=== PATIENT | female | born 1935 | race Caucasian/White ===

== ENCOUNTER 2016-11-15 18:10 | Inpatient (IN) | payer OTHER, MEDICARE ==
[2016-11-15] MEDS ORDERED: NS 1,000 ML IV ONE (18:20)
--- NOTE | 2016-11-15 18:32 | EDPHY ---
H & P Stated Complaint: FLU + sent from Time Seen by Provider: 11/15/16 18:19 HPI/ROS: CHIEF COMPLAINT: Fever, cough, congestion HISTORY OF PRESENT ILLNESS: The patient is referred to the emergency department from urgent care. She presents to the ED with a history of fever, cough and dyspnea that began on Wednesday. The patient has a history of reactive airway disease. The patient also has a history of coronary artery disease. She was diagnosed with influenza A at the urgent care. The patient is not had her flu shot this year. The patient denies any recent travel outside the [place]. She denies recent hospitalization or antibiotic use. The patient reports moderate dyspnea. She denies additional complaints. REVIEW OF SYSTEMS: A comprehensive 10 point review of systems is otherwise negative aside from elements mentioned in the history of present illness. Source: Patient - Personal History Current Tetanus/Diphtheria Vaccine: Yes Current Tetanus Diphtheria and Acellular Pertussis (TDAP): Yes Tetanus Vaccine Date: < 10 years - Medical/Surgical History Hx Asthma: Yes Hx Chronic Respiratory Disease: Yes Hx Diabetes: No Hx Cardiac Disease: Yes Hx Renal Disease: No Hx Cirrhosis: No Hx Alcoholism: No Hx HIV/AIDS: No Hx Splenectomy or Spleen Trauma: No Other PMH: [place], knee surg x2, HTN, COPD, asthma - Social History Smoking Status: Former smoker - Physical Exam Exam: General Appearance: Alert, no distress Eyes: Pupils equal and round no pallor or injection ENT, Mouth: Mucous membranes moist Respiratory: Tachypnea, respiratory rate 22, scant expiratory wheezing noted Cardiovascular: Regular rate and rhythm Gastrointestinal: Abdomen is soft and nontender, no masses, bowel sounds normal Neurological: A&O, normal motor function, normal sensory exam, normal cranial nerves Skin: Warm and dry, no rashes Musculoskeletal: Neck is supple nontender Extremities: symmetrical, full range of motion Constitutional: Initial Vital Signs Temperature (C) 37.5 C 11/15/16 18:14 Heart Rate 96 11/15/16 18:14 Respiratory Rate 18 11/15/16 18:14 Blood Pressure 108/75 11/15/16 18:14 O2 Sat (%) 97 11/15/16 18:14 O2 Delivery Mode Room Air Allergies/Adverse Reactions: No Known Allergies Allergy (Verified 11/15/16 18:12) Home Medications: Medication Instructions Recorded Aspirin [Aspirin 81mg (*)] 81 mg PO DAILY 11/17/13 Atorvastatin Calcium [Lipitor 10 10 mg PO DAILY 11/17/13 mg (*)] Calcium Carbonate/Vitamin D3 1 each PO BID 11/17/13 [Os-Adalberto 500-Vit D3 200 Caplet] Glucosamine/Chondro Garcia A [Cosamin 1 each PO BID 11/17/13 Ds Tablet] Herbals/Supplements -Info Only 1 ea PO DAILY 11/17/13 Hydrochlorothiazide [HCTZ (*)] 25 mg PO DAILY 11/17/13 amLODIPine BESYLATE [Norvasc 5 mg 5 mg PO DAILY 11/17/13 (*)] Omeprazole [Prilosec 20 mg] 20 mg PO DAILY 12/04/13 Losartan Potassium [Cozaar 25 mg 25 mg PO DAILY 11/15/16 (*)] Proair Hfa 11/15/16 Medical Decision Making ED Course/Re-evaluation: The patient's room-air oxygen saturation was 82% on my check. She was placed on supplemental oxygen at 2 liters/minute which elevated her oxygen saturation to 94% on room air. I reviewed the patient's chest x-ray obtained prior to arrival demonstrates no evidence of a focal infiltrate or effusion. The patient had an IV established. She received a L of normal saline. The patient presents to the ED with acute influenza with acute hypoxemia. The patient will require admission to the hospital in the setting of her oxygen requirement. Consultation is made with Dr. Bella from the hospitalist service who will admit the patient. The patient did receive Tamiflu in the emergency department. Differential Diagnosis: Differential diagnosis considered includes influenza, pneumonia, metabolic abnormality, hypoxemia, respiratory failure, sepsis - Data Points Laboratory Results: Laboratory Results 11/15/16 18:40 11/15/16 18:40 11/15/16 11/15/16 11/15/16 18:40 18:40 18:40 WBC 6.91 10^3/uL 10^3/uL (3.80-9.50) RBC 3.99 10^6/uL L 10^6/uL (4.18-5.33) Hgb 11.6 g/dL L g/dL (12.6-16.3) Hct 35.7 % L % (38.0-47.0) MCV 89.5 fL fL (81.5-99.8) MCH 29.1 pg pg (27.9-34.1) MCHC 32.5 g/dL g/dL (32.4-36.7) RDW 13.7 % % (11.5-15.2) Plt Count 172 10^3/uL 10^3/uL (150-400) MPV 11.8 fL H fL (8.7-11.7) Neut % (Auto) 77.1 % H % (39.3-74.2) Lymph % (Auto) 6.7 % L % (15.0-45.0) [place] % (Auto) 14.9 % H % (4.5-13.0) Eos % (Auto) 0.6 % % (0.6-7.6) Baso % (Auto) 0.1 % L % (0.3-1.7) Nucleat RBC Rel Count 0.0 % % (0.0-0.2) Absolute Neuts (auto) 5.33 10^3/uL 10^3/uL (1.70-6.50) Absolute Lymphs (auto) 0.46 10^3/uL L 10^3/uL (1.00-3.00) Absolute Monos (auto) 1.03 10^3/uL H 10^3/uL (0.30-0.80) Absolute Eos (auto) 0.04 10^3/uL 10^3/uL (0.03-0.40) Absolute Basos (auto) 0.01 10^3/uL L 10^3/uL (0.02-0.10) Absolute Nucleated RBC 0.00 10^3/uL 10^3/uL (0-0.01) Immature Gran % 0.6 % % (0.0-1.1) Immature Gran # 0.04 10^3/uL 10^3/uL (0.00-0.10) VBG Lactic Acid 1.6 mmol/L mmol/L (0.7-2.1) Sodium 132 mEq/L L mEq/L (134-144) Potassium 3.3 mEq/L L mEq/L (3.5-5.2) Chloride 97 mEq/L mEq/L (97-110) Carbon Dioxide 24 mEq/l mEq/l (22-31) Anion Gap 11 mEq/L mEq/L (8-16) BUN 18 mg/dL mg/dL (7-23) Creatinine 0.9 mg/dL mg/dL (0.6-1.0) Estimated GFR > 60 Glucose 107 mg/dL H mg/dL (70-100) Calcium 8.4 mg/dL L mg/dL (8.5-10.4) Medications Given: Discontinued Medications Sodium Chloride (Ns) 1,000 mls @ 0 mls/hr IV EDNOW ONE; Wide Open PRN Reason: Protocol Stop: 11/15/16 18:21 Last Admin: 11/15/16 18:42 Dose: 1,000 mls Departure - Departure Referrals: Marshall Davenport MD [Primary Care Provider] - As per Instructions
[2016-11-15 18:50] LABS: % IMMATURE GRANULYOCYTES 0.6 % (0.0-1.1); ABSOLUTE IMMATURE GRANULOCYTES 0.04 10^3/uL (0.00-0.10); ADD DIFF? NO; ADD MORPH? NO; ADD SCAN? NO; ATYPICAL LYMPHOCYTE FLAG 0 (0-99); FRAGMENT RBC FLAG 0 (0-99); HEMATOCRIT 35.7 % (38.0-47.0); HEMOGLOBIN 11.6 g/dL (12.6-16.3); LEFT SHIFT FLG 0 (0-99); LIPEMIA HEMOLYSIS FLAG 80 (0-99); MEAN CELL HEMOGLOBIN 29.1 pg (27.9-34.1); MEAN CELL HEMOGLOBIN CONCENTR. 32.5 g/dL (32.4-36.7); MEAN CELL VOLUME 89.5 fL (81.5-99.8); MEAN PLATELET VOLUME 11.8 fL (8.7-11.7); PLATELET CLUMPS FLAG 40 (0-99); PLATELET COUNT 172 10^3/uL (150-400); RED BLOOD CELL COUNT 3.99 10^6/uL (4.18-5.33); RED CELL DISTRIBUTION WIDTH 13.7 % (11.5-15.2)
[2016-11-15 19:08] LABS: ANION GAP 11 mEq/L (8-16); CALCIUM 8.4 mg/dL (8.5-10.4); CARBON DIOXIDE 24 mEq/l (22-31); CHLORIDE 97 mEq/L (97-110); CREATININE 0.9 mg/dL (0.6-1.0); GLOMERULAR FILTRATION RATE > 60; GLUCOSE 107 mg/dL (70-100); POTASSIUM 3.3 mEq/L (3.5-5.2); SODIUM 132 mEq/L (134-144)
[2016-11-15] MEDS ORDERED: OSELTAMIVIR PHOSPHATE 75 MG CAP PO ONE (19:34)
[2016-11-15] MEDS ORDERED: ONDANSETRON DISINTEGRATING 4 MG TAB PO PRN (20:30)
[2016-11-15] MEDS ORDERED: ACETAMINOPHEN 325 MG TAB PO PRN (20:30)
[2016-11-15] MEDS ORDERED: NS W/ 20 KCl/L 1,000 ML IV SCH (20:30)
[2016-11-15] MEDS ORDERED: ONDANSETRON 4 MG/2 ML VIAL IVP PRN (20:30)
--- NOTE | 2016-11-15 21:03 | GHP ---
[f rep st] HISTORY AND PHYSICAL DATE OF ADMISSION: 11/15/2016 CHIEF COMPLAINT: Cough and fever. HISTORY OF PRESENT ILLNESS: This is a 81-year-old female, who presents with 3 days of nonproductive cough. She has had some shortness of breath. She has also had nausea, vomiting, fevers, chills an d fatigue. No diarrhea. REVIEW OF SYSTEMS: A 10-point review of systems was obtained and was negative. PAST MEDICAL HISTORY: 1. Hypertension. 2. Hyperlipidemia. 3. COPD, not on home oxygen. MEDICATIONS: Reviewed. SOCIAL HISTORY: Quit smoking 55 years ago. Lives with her . FAMILY HISTORY: Reviewed and noncontributory. PHYSICAL EXAMINATION: VITAL SIGNS: Afebrile, although in the urgent care it was over 38 degrees Ce lsius, blood pressure 98/81, heart rate 29, oxygen saturation 94% on 2 L. GENERAL: The patient is well developed, no apparent distress. HEENT: Nonicteric sclerae. Extraocular movements intact. M oist mucous membranes. NECK: Supple. No thyromegaly. LUNGS: Good effort. Fairly clear bilatera lly. CARDIOVASCULAR: Regular rate and rhythm. No murmurs, rubs, or gallops. ABDOMEN: Positive b owel sounds. Soft, nontender, nondistended. No hepatosplenomegaly. EXTREMITIES: No clubbing, cya nosis, or edema. SKIN: Without rash. Warm, intact. NEUROLOGIC: Alert and oriented x3. Moving a ll 4 extremities equally. PSYCHIATRIC: Normal mood and affect. LABORATORY DATA: CBC is essentially normal, though mild anemia. Lactic acid is normal. Potassium is a little bit low at 3.3, sodium is 132. Flu was reported positive at urgent care. Chest x-ray, personally reviewed and interpreted, does not show pneumonia. ASSESSMENT: This is a 81-year-old female presenting with influenza. PLAN: 1. Influenza. We will continue Tamiflu. Give IV fluids. Antiemetics as needed. 2. History of chronic obstructive pulmonary disease with reactive airways. Per ER, she was quite w heezy when she came in. We will schedule nebulizer treatments. Hold off on any steroids. 3. Hypertension. We will continue medications. Hold the diuretic for now. /[id number]/MODL
[2016-11-15] MEDS: IPRATROPIUM/ALBUTEROL 3 ML DEYVIAL IH SCH (21:18)
[2016-11-16] MEDS: IPRATROPIUM/ALBUTEROL 3 ML DEYVIAL IH SCH ×4 (05:28→20:49)
[2016-11-16] MEDS: OSELTAMIVIR PHOSPHATE 75 MG CAP PO SCH ×2 (08:58→17:50)
[2016-11-16] MEDS ORDERED: FAMOTIDINE 20 MG TAB PO PRN (09:39)
[2016-11-16] MEDS ORDERED: diphenhydrAMINE 25 MG CAP PO PRN (09:39)
[2016-11-16] MEDS ORDERED: VITAMIN D3 PO SCH (09:45)
[2016-11-16] MEDS ORDERED: [UNRECOGNIZED DRUG - OTHER] PO SCH (09:45)
[2016-11-16] MEDS ORDERED: CALCIUM CARBONATE PO SCH (09:45)
[2016-11-16] MEDS ORDERED: Herbals/Supplements -Info Only PO SCH (10:00)
[2016-11-16] MEDS: CALCIUM CARB W/VIT D 500 MG TAB PO SCH ×2 (10:46→21:10)
[2016-11-16] MEDS: ASPIRIN 81 MG CHEWABLE TAB PO SCH (10:46)
[2016-11-16] MEDS: predniSONE 20 MG TAB PO SCH (10:46)
--- NOTE | 2016-11-16 14:52 | HOSPPROG ---
Hospitalist Progress Note Assessment/Plan: Assessment: 81-year-old female presents with acute hypoxic respiratory failure in the setting of acute COPD exacerbation influenza Plan: 1. Acute hypoxic respiratory failure. Evidenced by SpO2 of 78% on room air with tachypnea, labored breathing, symptomatic shortness of breath, secondary to acute COPD exacerbation -requiring up titration to 4 L nasal cannula today in order to accomplish stabilization -treat COPD exacerbation more aggressively, then continue to wean 2. Acute COPD exacerbation. Evidenced by diffuse expiratory wheezes and bronchial breath sounds, has known COPD but is not on any long-acting inhalers -worsening today, introduce prednisone for 5 day burst, continue scheduled duo nebs -chest x-ray demonstrating no focal airspace disease, flattening of the diaphragms consistent with COPD -counseled patient extensively regarding possible need for short-term oxygen, introduction of steroids and gauging of affect over the next 24-48 hours 3. Influenza. Acute infection, resulting in fever, provoking COPD exacerbation , patient remains asymptomatic and is feeling lethargic -engage with physical therapy -supportive care -continue Tamiflu, day 2 of 5 4. Hyponatremia. Acute, secondary to poor oral intake in the setting of above, give normal saline and repeat serum sodium level in a.m. Diet. Regular Prophylaxis. High risk patient, Lovenox 40 Code. Full Disposition. Upgraded to inpatient admission status, given that anticipated length stay is greater than 48 hours for reasonable medical necessity including worsening COPD exacerbation, worsening respiratory failure, in the setting of influenza. Subjective: Patient remains symptomatically short of breath with activity Objective: Vital Signs Temp Pulse Resp BP Pulse Ox 36.8 C 98 16 141/46 H 87 L 11/16/16 11:33 11/16/16 11:33 11/16/16 11:33 11/16/16 11:33 11/16/16 11:45 11/15/16 11/16/16 11/17/16 05:59 05:59 05:59 Intake Total 1120 Balance 1120 - Time Spent With Patient Time Spent with Patient: greater than 35 minutes Time Spent with Patient: Greater than 35 minutes spent on this patients care, greater than 50% of time spent counseling, educating, and coordinating care regarding the above mentioned plan. - Physical Exam Constitutional: not in pain, uncomfortable Cardiovascular: regular rate and rhythym, no murmur, rub, or gallop Respiratory: reduced air movement (On expiration bilaterally), expiratory wheeze , bronchial breath sounds, No inspiratory crackles Gastrointestinal: normoactive bowel sounds, soft, non-tender abdomen, no palpable masses Neurologic: AAOx3, sensation intact bilaterally Psychiatric: interacting appropriately, not anxious, not encephalopathic, thought process linear ICD10 Worksheet Patient Problems: Problems Problem Status Onset Primary localized osteoarthrosis, lower leg Chronic
--- NOTE | 2016-11-16 15:42 | ASMTCMCOM ---
CM Note CM Note Notes: Pt here w/increased O2 needs and flu, dc needs unclear, PT to eval. RENEE w/f. Date Signed: 11/16/2016 03:41 PM Electronically Signed By:Renita Granger
[2016-11-16] MEDS ORDERED: MELATONIN 3 MG TAB PO SCH (21:00)
[2016-11-16] MEDS ORDERED: IBUPROFEN 200 MG TAB PO SCH (21:00)
[2016-11-17 05:15] LABS: % IMMATURE GRANULYOCYTES 0.6 % (0.0-1.1); ABSOLUTE IMMATURE GRANULOCYTES 0.03 10^3/uL (0.00-0.10); ADD DIFF? NO; ADD MORPH? NO; ADD SCAN? NO; ATYPICAL LYMPHOCYTE FLAG 0 (0-99); FRAGMENT RBC FLAG 0 (0-99); HEMOGLOBIN 11.1 g/dL (12.6-16.3); LEFT SHIFT FLG 10 (0-99); LIPEMIA HEMOLYSIS FLAG 80 (0-99); MEAN CELL HEMOGLOBIN 29.2 pg (27.9-34.1); MEAN CELL HEMOGLOBIN CONCENTR. 32.6 g/dL (32.4-36.7); MEAN CELL VOLUME 89.5 fL (81.5-99.8); PLATELET CLUMPS FLAG 10 (0-99); PLATELET COUNT 130 10^3/uL (150-400); RED CELL DISTRIBUTION WIDTH 13.7 % (11.5-15.2)
[2016-11-17 05:35] LABS: ALANINE AMINOTRANSFERASE 36 IU/L (9-52); ALKALINE PHOSPHATASE 56 IU/L (38-126); ASPARTATE AMINOTRANSFERASE 49 IU/L (14-46); BILIRUBIN,TOTAL 0.4 mg/dL (0.1-1.4); CALCIUM 8.6 mg/dL (8.5-10.4); CARBON DIOXIDE 27 mEq/l (22-31); CHLORIDE 101 mEq/L (97-110); CREATININE 0.8 mg/dL (0.6-1.0); GLOMERULAR FILTRATION RATE > 60; GLUCOSE 104 mg/dL (70-100); SODIUM 135 mEq/L (134-144); TOTAL PROTEIN 5.6 g/dL (6.3-8.2)
[2016-11-17] MEDS: IPRATROPIUM/ALBUTEROL 3 ML DEYVIAL IH SCH ×2 (05:44→10:25)
[2016-11-17 07:08] LABS: ANION GAP 7 mEq/L (8-16); POTASSIUM 4.3 mEq/L (3.5-5.2)
[2016-11-17] MEDS: ASPIRIN 81 MG CHEWABLE TAB PO SCH (08:12)
[2016-11-17] MEDS: OSELTAMIVIR PHOSPHATE 75 MG CAP PO SCH (08:12)
[2016-11-17] MEDS: CALCIUM CARB W/VIT D 500 MG TAB PO SCH (08:12)
[2016-11-17] MEDS: predniSONE 20 MG TAB PO SCH (08:12)
[2016-11-17 11:34] VITALS: BP 126/61; PULSE 85; RESP 16; TEMP 99.2; O2SAT 92
--- NOTE | 2016-11-17 13:06 | PDHOMEO2F ---
Home Oxygen Face to Face Home Orders: I certify that a physician or a nurse practitioner or physician's assistant site manager has had a fgsd-to-fefz encounter with this patient on the date of this order due to the diagnosis listed, which relates to the primary reason the patient requires home oxygen. Alternative treatments have been tried, or considered, and deemed ineffective. It is anticipated that supplemental oxygen will result in improvement with treatment. Home oxygen qualifying diagnosis: COPD Home oxygen secondary diagnosis: Influenza A Infection SpO2 on room air (%): 86 Frequency of home oxygen needed: continuous Home oxygen liters per minute: 2 Home oxygen delivery device: nasal cannula Concentrator: Yes E-tanks for mobility and back up: Yes If ordering portable O2, is the patient mobile in the home?: Yes I certify that, based on these findings, the home oxygen is medically necessary for this patient for the following length of time. Length of time home oxygen needed: 1 month
--- NOTE | 2016-11-17 13:15 | PDDCSUM ---
Discharge Summary Discharge Summary: DISCHARGE SUMMARY FOLLOW-UP ITEMS: Reassess oxygen needs in the outpatient setting DATE OF ADMISSION: 11/15/16 DATE OF DISCHARGE: 11/17/2016 DISCHARGE DIAGNOSES: 1. Acute hypoxic respiratory failure 2. Acute COPD exacerbation 3. Acute influenza infection 4. Acute hyponatremia CONSULTATIONS: None PROCEDURES / IMAGING: Chest x-ray demonstrating no focal airspace disease, flattening of the diaphragms consistent with COPD CHIEF COMPLAINT: Acute shortness of breath SUBJECTIVE: Patient is feeling well at time of discharge, she is ambulating well with supplemental oxygen PHYSICAL EXAM ON DISCHARGE: Systolic blood pressure is 130-150, heart rate 69, satting 86% on room air, satting well on 2 L nasal cannula, afebrile overnight, lungs are clear on inspiration bilaterally, they have a faint late expiratory wheeze bilateral mid posterior segments with significant improvement from day prior, no bronchial breath sounds LABS ON DISCHARGE: Serum sodium 135, potassium 4.3, creatinine 0.8, white blood count 4800, hemoglobin 11.1 HOSPITAL COURSE BY PROBLEM: 1. Acute hypoxic respiratory failure. Evidenced by SpO2 of 78% on room air with tachypnea, labored breathing, symptomatic shortness of breath, secondary to acute COPD exacerbation requiring up titration to 4 L nasal cannula oxygen in order to accomplish stabilization. The patient's supplemental oxygen requirements were weaned as her COPD was treated. The patient require supplemental oxygen at time of discharge. She will be reassessed in the outpatient setting. 2. Acute COPD exacerbation. Evidenced by diffuse expiratory wheezes and bronchial breath sounds, most likely provoked by influenza infection. She does have a known history of COPD but is not on any long-acting inhalers. The patient required prednisone, scheduled duo nebs, and treatment for influenza. Her expiratory wheezes and bronchial breath sounds significantly improved, and she will continue on a 5 day total burst of prednisone, and she should have outpatient pulmonary function test after this acute exacerbation. DISCHARGE MEDICATIONS: Please see official discharge medication reconciliation sheet in chart , Tamiflu 75 mg twice daily, prednisone 60 mg once daily, as needed albuterol inhaler. DISCHARGE INSTRUCTIONS: Please follow up with primary care provider early next week, get pulmonary function tests thereafter. TIME SPENT: Greater than 30 minutes were spent on direct patient care, as well as discharge planning and preparation.
--- NOTE | 2016-11-17 15:45 | ASMTCMCOM ---
CM Note CM Note Notes: Patient is being d/c'ed today. PT recommends independent d/c with no needs. CM available if needs change. Date Signed: 11/17/2016 03:45 PM Electronically Signed By:Ira Nj
== END 2016-11-17 14:59 | disposition home or self-care (01) | DRG 190 ==
LOC: F3E 20:11 → OBSVTOIN 11-16 14:49
PROVIDERS: ADMIT Internal Medicine; ATTEND Internal Medicine
DX: J44.1 Chronic obstructive pulmonary disease with (acute) exacerbation (principal); J96.01 Acute respiratory failure with hypoxia; J11.1 Influenza due to unidentified influenza virus with other respiratory manifestations; E87.1 Hypo-osmolality and hyponatremia; I25.10 Atherosclerotic heart disease of native coronary artery without angina pectoris; I10 Essential (primary) hypertension; E78.5 Hyperlipidemia, unspecified
CPT/HCPCS: 97161-GP; G0378; G8978-GP-CI; G8979-GP-CI; G8980-GP-CI

== ENCOUNTER → 2016-11-15 | Outpatient (CLI) | payer OTHER, MEDICARE | LOC: BMCIMAGING 16:48 | PROVIDERS: ATTEND Family Medicine | DX: J40 Bronchitis, not specified as acute or chronic (principal) ==

== ENCOUNTER 2016-11-22 12:48 | Inpatient (IN) | payer OTHER, MEDICARE ==
[2016-11-22] MEDS ORDERED: IPRATROPIUM/ALBUTEROL 3 ML DEYVIAL IH ONE (13:24)
--- NOTE | 2016-11-22 13:27 | EDPHY ---
H & P Stated Complaint: Flu A+ diag last sun still cough - Personal History Current Tetanus/Diphtheria Vaccine: Yes Current Tetanus Diphtheria and Acellular Pertussis (TDAP): Yes Tetanus Vaccine Date: < 10 years - Medical/Surgical History Hx Asthma: Yes Hx Chronic Respiratory Disease: Yes Hx Diabetes: No Hx Cardiac Disease: Yes Hx Renal Disease: No Hx Cirrhosis: No Hx Alcoholism: No Hx HIV/AIDS: No Hx Splenectomy or Spleen Trauma: No Other PMH: [place], knee surg x2, HTN, COPD, asthma - Social History Smoking Status: Former smoker <Alonzo Sepulveda Swati - Last Filed: 11/22/16 13:32> <Rocco Lackey - Last Filed: 11/22/16 14:17> Time Seen by Provider: 11/22/16 13:15 HPI/ROS: CHIEF COMPLAINT: "I am feeling worse " HISTORY OF PRESENT ILLNESS: 81-year-old female history of COPD, recent hospitalization with discharge 5 days ago for acute hypoxic respiratory failure , acute influenza infection COPD infection, returns to the emergency department stating that for the past 3 days she has been feeling progressively worse, increased fatigue, increased dyspnea, increased coughing. Nonproductive. She also notes new dysuria without hematuria, without flank pain. Denies fever chills. She was seen at [facility] yesterday for evaluation of left antecubital fossa thrombophlebitis. REVIEW OF SYSTEMS: A ten point review of systems was performed and is negative with the exception of the items mentioned in the HPI PAST MEDICAL & SURGICAL HISTORY: COPD. Recent influenza infection SOCIAL HISTORY:nonsmoker. PHYSICAL EXAM (Prior to examination, patient consented to physical exam, hands were washed and my usual and customary physical exam procedures followed) 1) GENERAL: Well-developed, well-nourished, alert and oriented. Appears nontoxic 2) HEAD: Normocephalic, atraumatic 3) HEENT: Pupils equal, round, reactive to light bilaterally. Sclera anicteric. Nasopharynx, oropharynx, clear, no lesions. No tonsillar enlargement or exudate Ears bilaterally with normal tympanic membranes. 4) NECK: Full range of motion, no meningeal signs. 5) LUNGS: Bilateral end-expiratory wheeze, bilateral crackles, no accessory muscle use, no flaring or grunting 6) HEART: Regular rate and rhythm, no murmur, no heave, no gallop. 7) ABDOMEN: No guarding, no rebound, no focal tenderness, 8) MUSCULOSKELETAL: Left upper extremity: Left antecubital fossa erythema at her IV puncture site. No lymphangitic streaking. No crepitus. No epitrochlear or axillary adenopathy 9) BACK: no obvious trauma, no visual or palpable abnormality. 10) SKIN: No rash, no petechiae. 11) Psychiatric: Patient is oriented X 3, there is no agitation. DIFFERENTIAL DIAGNOSIS: in no particular include but limited to acute COPD exacerbation, influenza pneumonia, bronchitis, PE (Alonzo Sepulveda) Constitutional: Initial Vital Signs Temperature (C) 36.9 C 11/22/16 12:57 Heart Rate 82 11/22/16 12:57 Respiratory Rate 16 11/22/16 12:57 Blood Pressure 128/74 H 11/22/16 12:57 O2 Sat (%) 90 L 11/22/16 12:57 O2 Delivery Mode Room Air Allergies/Adverse Reactions: No Known Allergies Allergy (Verified 11/15/16 18:12) Home Medications: Medication Instructions Recorded Atorvastatin Calcium [Lipitor 10 10 mg PO DAILY 11/17/13 mg (*)] Calcium Carbonate/Vitamin D3 1 each PO BID 11/17/13 [Os-Adalberto 500-Vit D3 200 Caplet] Herbals/Supplements -Info Only 1 ea PO DAILY 11/17/13 Albuterol [Ventolin Hfa Inhaler] 2 puffs IH Q4 PRN 11/15/16 Aspirin [Aspirin 81mg (*)] 81 mg PO DAILY 11/15/16 Famotidine [Pepcid 20 MG (*)] 20 mg PO DAILY PRN 11/15/16 Ibuprofen [Motrin (*)] 400 mg PO HS 11/15/16 Melatonin [Melatonin 3 MG (*)] 10 mg PO HS 11/15/16 diphenhydrAMINE [Benadryl 25 MG 25 - 50 mg PO DAILY PRN 11/15/16 (*)] Hydrochlorothiazide [HCTZ (*)] 25 mg PO DAILY #0 11/17/16 Losartan Potassium [Cozaar 25 mg 25 mg PO DAILY #0 11/17/16 (*)] Oseltamivir Phosphate [Tamiflu 75 75 mg PO BIDMEAL #6 cap 11/17/16 mg (*)] predniSONE 60 mg PO DAILY #9 tablet 11/17/16 Medical Decision Making <Alonzo Sepulveda - Last Filed: 11/22/16 13:32> Consult/Admit Bed Type: [place] [id number] <Rocco Lackey - Last Filed: 11/22/16 14:17> - Diagnostics Imaging Results: Imaging Impressions Chest X-Ray 11/22/16 12:51 Impression: 1. Stable scarring at the right lung base. No active cardiac pulmonary disease seen. ED Course/Re-evaluation: 1:27 p.m.: Old medical records reviewed including recent hospitalization. Discussed case with Dr Lackey in ER. (Alonzo Sepulveda) Differential Diagnosis: Differential diagnosis considered for shortness of breath including but not limited to pulmonary infectious process, COPD, asthma, pulmonary embolus and congestive heart failure. (Rocco Lackey) Other Provider: PHYSICIAN DOCUMENTATION: The patient was evaluated and managed by the Physician Practical Nursing Faculty and myself. I have reviewed the chart and agree with the findings and plan of care as documented. In addition, I examined the patient myself at 1340. History confirmed as recent hospitalization for influenza, wheezy today. She did have significant reaction to steroids and was unable to sleep and refuses than this time. Physical findings as follows: Supplemental oxygen, bilateral wheezes expiratory. Chest x-ray personally interpreted does not show pneumonia. DuoNeb and albuterol neb. Patient refused steroids. Readmission for supportive care. Does not have SIRS criteria in the emergency department. I think acute bacterial infection is unlikely. I am the secondary supervising physician. (Rocco Lackey) - Data Points Laboratory Results: Laboratory Results 11/22/16 13:40 11/22/16 13:40 11/22/16 11/22/16 11/22/16 13:40 13:40 13:40 WBC 14.21 10^3/uL H 10^3/uL (3.80-9.50) RBC 4.53 10^6/uL 10^6/uL (4.18-5.33) Hgb 13.1 g/dL g/dL (12.6-16.3) Hct 40.4 % % (38.0-47.0) MCV 89.2 fL fL (81.5-99.8) MCH 28.9 pg pg (27.9-34.1) MCHC 32.4 g/dL g/dL (32.4-36.7) RDW 13.4 % % (11.5-15.2) Plt Count 233 10^3/uL 10^3/uL (150-400) MPV 11.7 fL fL (8.7-11.7) Neut % (Auto) 63.4 % % (39.3-74.2) Lymph % (Auto) 24.7 % % (15.0-45.0) [place] % (Auto) 9.9 % % (4.5-13.0) Eos % (Auto) 1.2 % % (0.6-7.6) Baso % (Auto) 0.1 % L % (0.3-1.7) Nucleat RBC Rel Count 0.0 % % (0.0-0.2) Absolute Neuts (auto) 9.02 10^3/uL H 10^3/uL (1.70-6.50) Absolute Lymphs (auto) 3.51 10^3/uL H 10^3/uL (1.00-3.00) Absolute Monos (auto) 1.40 10^3/uL H 10^3/uL (0.30-0.80) Absolute Eos (auto) 0.17 10^3/uL 10^3/uL (0.03-0.40) Absolute Basos (auto) 0.01 10^3/uL L 10^3/uL (0.02-0.10) Absolute Nucleated RBC 0.00 10^3/uL 10^3/uL (0-0.01) Immature Gran % 0.7 % % (0.0-1.1) Immature Gran # 0.10 10^3/uL 10^3/uL (0.00-0.10) VBG Lactic Acid 1.0 mmol/L mmol/L (0.7-2.1) Sodium 135 mEq/L mEq/L (134-144) Potassium 3.7 mEq/L mEq/L (3.5-5.2) Chloride 95 mEq/L L mEq/L (97-110) Carbon Dioxide 29 mEq/l mEq/l (22-31) Anion Gap 11 mEq/L mEq/L (8-16) BUN 21 mg/dL mg/dL (7-23) Creatinine 0.9 mg/dL mg/dL (0.6-1.0) Estimated GFR > 60 Glucose 100 mg/dL mg/dL (70-100) Calcium 9.3 mg/dL mg/dL (8.5-10.4) Departure <Alonzo Sepulveda - Last Filed: 11/22/16 13:32> <Rocco Lackey - Last Filed: 11/22/16 14:17> - Departure Disposition: [facility] Inpatient Acute Clinical Impression: Influenza A Acute respiratory failure Qualifiers: Respiratory failure complication: hypoxia Qualified Code(s): J96.01 - Acute respiratory failure with hypoxia Condition: Fair Referrals: Marshall Davenport MD [Primary Care Provider] - As per Instructions
[2016-11-22] MEDS ORDERED: ALBUTEROL 3 ML DEYVIAL IH ONE (13:45)
[2016-11-22 13:49] LABS: % IMMATURE GRANULYOCYTES 0.7 % (0.0-1.1); ADD DIFF? NO; ADD MORPH? NO; ADD SCAN? NO; ATYPICAL LYMPHOCYTE FLAG 20 (0-99); FRAGMENT RBC FLAG 0 (0-99); HEMATOCRIT 40.4 % (38.0-47.0); HEMOGLOBIN 13.1 g/dL (12.6-16.3); LEFT SHIFT FLG 0 (0-99); LIPEMIA HEMOLYSIS FLAG 80 (0-99); MEAN CELL HEMOGLOBIN 28.9 pg (27.9-34.1); MEAN CELL HEMOGLOBIN CONCENTR. 32.4 g/dL (32.4-36.7); MEAN CELL VOLUME 89.2 fL (81.5-99.8); MEAN PLATELET VOLUME 11.7 fL (8.7-11.7); PLATELET CLUMPS FLAG 0 (0-99); PLATELET COUNT 233 10^3/uL (150-400); RED BLOOD CELL COUNT 4.53 10^6/uL (4.18-5.33); RED CELL DISTRIBUTION WIDTH 13.4 % (11.5-15.2)
[2016-11-22 14:02] LABS: ANION GAP 11 mEq/L (8-16); CALCIUM 9.3 mg/dL (8.5-10.4); CARBON DIOXIDE 29 mEq/l (22-31); CHLORIDE 95 mEq/L (97-110); CREATININE 0.9 mg/dL (0.6-1.0); GLOMERULAR FILTRATION RATE > 60; GLUCOSE 100 mg/dL (70-100); POTASSIUM 3.7 mEq/L (3.5-5.2); SODIUM 135 mEq/L (134-144)
[2016-11-22] MEDS ORDERED: ACETAMINOPHEN 325 MG TAB PO PRN (15:32)
[2016-11-22] MEDS ORDERED: IBUPROFEN 200 MG TAB PO PRN (15:32)
[2016-11-22] MEDS ORDERED: ONDANSETRON 4 MG/2 ML VIAL IVP PRN (15:32)
[2016-11-22] MEDS ORDERED: ONDANSETRON DISINTEGRATING 4 MG TAB PO PRN (15:32)
[2016-11-22] MEDS ORDERED: oxyCODONE IR 5 MG TAB PO PRN (15:32)
--- NOTE | 2016-11-22 15:51 | PDGENHP ---
History and Physical - Chief Complaint Acute fatigue - History of Present Illness 81 yo F p/w acute fatigue characterized as general tiredness w/ associated dyspnea, increased cough (non-productive), dysuria, swelling/pain located in the left antecubital fossa, and vesicular rash over her mouth. These are occurring in the context of being discharged from [facility] on 11/17 w/ minimal bilat wheezes and a resolving COPD exacerbation 2/2 influenza infxn. She was discharged on tamiflu, albuterol inh PRN, and prednisone 60mg. The predisone and her 's cough rendered her unable to soundly sleep since returning home. Her tested negative for influenza. She has noted swelling/pain in left antecubital fossae where she had a prior IV, and she was seen at [facility] for this issue, wound cx staph, advised to place hot compress and not placed on Abx. Compress has somewhat alleviated the swelling, and pus has drained. She has also developed vesicular lesions on her mouth, crossing the midline, and these are somewhat irritated. Overall, her cough was improved on prednisone, then worsened after she came off. It has resulted in a hoarse voice, and has been some alleviated w/ guaif/codeine. History Information - Allergies/Home Medication List Allergies/Adverse Reactions: No Known Allergies Allergy (Verified 11/15/16 18:12) Home Medications: Atorvastatin Calcium [Lipitor 10 mg (*)] 10 mg PO DAILY 11/17/13 [Last Taken 12/29] Calcium Carbonate/Vitamin D3 [Os-Adalberto 500-Vit D3 200 Caplet] 1 each PO BID [Last Taken 11/22/16] Herbals/Supplements -Info Only 1 ea PO DAILY 11/17/13 [Last Taken 12/03/13 10:30 ] Albuterol [Ventolin Hfa Inhaler] 2 puffs IH Q4 PRN 11/15/16 [Last Taken 11/15/16 ] Aspirin [Aspirin 81mg (*)] 81 mg PO DAILY 11/15/16 [Last Taken 11/22/16] Famotidine [Pepcid 20 MG (*)] 20 mg PO DAILY PRN 11/15/16 [Last Taken 11/21/16] Ibuprofen [Motrin (*)] 400 mg PO HS 11/15/16 [Last Taken 11/21/16] Melatonin [Melatonin 3 MG (*)] 10 mg PO HS 11/15/16 [Last Taken 11/21/16] I have personally reviewed and updated: family history, medical history, social history, surgical history - Past Medical History COPD (recently discharged home w/ o2), hypertension, hyperlipidemia - Surgical History Reports: no pertinent surgical hx - Family History Additional family history: also acutely w/ URI - Social History Smoking Status: Former smoker Alcohol Use: None Drug Use: None Additional social history: independent ADLs Review of Systems Review of Systems: ROS: 10pt was reviewed & negative except for what was stated in HPI & below Constitutional: Reports: malaise, weakness Respiratory: Reports: cough Genitourinary: Reports: dysuria Skin: Reports: rash Physical Exam Physical Exam: Temp Pulse Resp BP Pulse Ox 36.8 C 84 18 130/69 H 92 11/22/16 15:07 11/22/16 15:07 11/22/16 15:07 11/22/16 15:07 11/22/16 15:07 O2 (L/minute) 2 Constitutional: no apparent distress, not in pain, uncomfortable Eyes: PERRL, anicteric sclera, EOMI Ears, Nose, Mouth, Throat: moist mucous membranes, hearing normal, ears appear normal, no oral mucosal ulcers Cardiovascular: regular rate and rhythym, no murmur, rub, or gallop, No edema Respiratory: expiratory wheeze, bronchial breath sounds, No reduced air movement , No inspiratory crackles, No respiratory distress Gastrointestinal: normoactive bowel sounds, soft, non-tender abdomen, no palpable masses, No distension Skin: other (lesions above and below mouth w/o schaefer crusting; tender induration/erythema left arm, blanching) Neurologic: AAOx3, sensation intact bilaterally, No weakness Psychiatric: interacting appropriately, not anxious, not encephalopathic, thought process linear Lymph, Heme, Immunologic: other (mildly tender, 2cm bilat ant cervical lymph nodes) Lab Data & Imaging Review 11/22/16 13:40 11/22/16 13:40 WBC 14.21 10^3/uL (3.80-9.50) H 11/22/16 13:40 RBC 4.53 10^6/uL (4.18-5.33) 11/22/16 13:40 Hgb 13.1 g/dL (12.6-16.3) 11/22/16 13:40 Hct 40.4 % (38.0-47.0) 11/22/16 13:40 MCV 89.2 fL (81.5-99.8) 11/22/16 13:40 MCH 28.9 pg (27.9-34.1) 11/22/16 13:40 MCHC 32.4 g/dL (32.4-36.7) 11/22/16 13:40 RDW 13.4 % (11.5-15.2) 11/22/16 13:40 Plt Count 233 10^3/uL (150-400) 11/22/16 13:40 MPV 11.7 fL (8.7-11.7) 11/22/16 13:40 Neut % (Auto) 63.4 % (39.3-74.2) 11/22/16 13:40 Lymph % (Auto) 24.7 % (15.0-45.0) 11/22/16 13:40 [place] % (Auto) 9.9 % (4.5-13.0) 11/22/16 13:40 Eos % (Auto) 1.2 % (0.6-7.6) 11/22/16 13:40 Baso % (Auto) 0.1 % (0.3-1.7) L 11/22/16 13:40 Nucleat RBC Rel Count 0.0 % (0.0-0.2) 11/22/16 13:40 Absolute Neuts (auto) 9.02 10^3/uL (1.70-6.50) H 11/22/16 13:40 Absolute Lymphs (auto) 3.51 10^3/uL (1.00-3.00) H 11/22/16 13:40 Absolute Monos (auto) 1.40 10^3/uL (0.30-0.80) H 11/22/16 13:40 Absolute Eos (auto) 0.17 10^3/uL (0.03-0.40) 11/22/16 13:40 Absolute Basos (auto) 0.01 10^3/uL (0.02-0.10) L 11/22/16 13:40 Absolute Nucleated RBC 0.00 10^3/uL (0-0.01) 11/22/16 13:40 Immature Gran % 0.7 % (0.0-1.1) 11/22/16 13:40 Immature Gran # 0.10 10^3/uL (0.00-0.10) 11/22/16 13:40 VBG Lactic Acid 1.0 mmol/L (0.7-2.1) 11/22/16 13:40 Sodium 135 mEq/L (134-144) 11/22/16 13:40 Potassium 3.7 mEq/L (3.5-5.2) 11/22/16 13:40 Chloride 95 mEq/L (97-110) L 11/22/16 13:40 Carbon Dioxide 29 mEq/l (22-31) 11/22/16 13:40 Anion Gap 11 mEq/L (8-16) 11/22/16 13:40 BUN 21 mg/dL (7-23) 11/22/16 13:40 Creatinine 0.9 mg/dL (0.6-1.0) 11/22/16 13:40 Estimated GFR > 60 11/22/16 13:40 Glucose 100 mg/dL (70-100) 11/22/16 13:40 Calcium 9.3 mg/dL (8.5-10.4) 11/22/16 13:40 Visualized and Interpreted Chest x-ray results: Yes Chest X-Ray results: no infiltrate Assessment & Plan Assessment: 81 yo F p/w acute, recurrent COPD exacerbation in setting of recent influenza infxn, new HSV-1 activation, and cellulitis Plan: # COPD exacerbation. Acute, recurrently, evidenced by diffuse exp wheezes/ bronchial breath sounds, likely lingering from recent exacerbation w/o new infxn or provoking factor, rebounded after prednisone completed - restart prednisone, at 40mg daily (60mg resulted in insomnia) - scheduled duonebs - abx to shorten duration - cont supp o2 # Cellulitis. Acute, new prob, further w/u indicated. 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 Cont home Rx Diet. Regular PPx. High risk, lovenox 40 Code. Full Dispo. ADD 11/23 pending clinical stabilization of above Discussed w/ Davonte Quintero, he has assigned the patient to me for evaluation.
[2016-11-22] MEDS ORDERED: FAMOTIDINE 20 MG TAB PO PRN (16:06)
[2016-11-22] MEDS ORDERED: guaiFENesin/CODEINE PHOS 10 ML UDCUP PO PRN (16:08)
[2016-11-22] MEDS ORDERED: BENZONATATE 100 MG CAP PO PRN (16:08)
[2016-11-22] MEDS: IPRATROPIUM/ALBUTEROL 3 ML DEYVIAL IH SCH (16:24)
[2016-11-22] MEDS: guaiFENesin 600 MG TAB.ER PO SCH ×2 (16:56→21:35)
[2016-11-22 16:57] LABS: COLOR PALE YELLOW; LEUKOCYTE ESTERASE,URINE NEGATIVE (NEGATIVE); NITRITE,URINE NEGATIVE (NEGATIVE)
[2016-11-22] MEDS: CLINDAMYCIN 150 MG CAP PO SCH ×2 (16:57→21:35)
[2016-11-22] MEDS: predniSONE 20 MG TAB PO SCH (16:57)
[2016-11-22] MEDS: NS W/ 20 KCl/L 1,000 ML IV SCH (16:58)
[2016-11-22] MEDS: valACYclovir 500 MG TAB PO SCH ×2 (17:06→21:36)
--- NOTE | 2016-11-22 17:09 | ASMTCMCOM ---
CM Note CM Note Notes: Pt has been admitted w/COPD exacerbation, fatigue, SOB. Recently discharged from [facility] 11/17 after hospitalization for same. , lives w/. CM will follow for any d/c needs. Date Signed: 11/22/2016 04:19 PM Electronically Signed By:Isa Beltre
[2016-11-22] MEDS: CALCIUM CARB W/VIT D 500 MG TAB PO SCH ×2 (20:55→23:29)
[2016-11-22] MEDS: MELATONIN 3 MG TAB PO SCH ×2 (20:55→23:30)
[2016-11-22] MEDS ORDERED: VITAMIN D3 PO SCH (21:00)
[2016-11-22] MEDS ORDERED: [UNRECOGNIZED DRUG - OTHER] PO SCH (21:00)
[2016-11-22] MEDS ORDERED: MELATONIN 3 MG TAB PO SCH (21:00)
[2016-11-22] MEDS ORDERED: CALCIUM CARBONATE PO SCH (21:00)
[2016-11-23] MEDS: IPRATROPIUM/ALBUTEROL 3 ML DEYVIAL IH SCH ×5 (00:10→23:22)
[2016-11-23] MEDS: NS W/ 20 KCl/L 1,000 ML IV SCH (03:20)
[2016-11-23 05:20] LABS: % IMMATURE GRANULYOCYTES 0.6 % (0.0-1.1); ABSOLUTE IMMATURE GRANULOCYTES 0.06 10^3/uL (0.00-0.10); ADD DIFF? NO; ADD MORPH? NO; ADD SCAN? NO; ATYPICAL LYMPHOCYTE FLAG 10 (0-99); FRAGMENT RBC FLAG 0 (0-99); HEMATOCRIT 35.3 % (38.0-47.0); HEMOGLOBIN 11.7 g/dL (12.6-16.3); LEFT SHIFT FLG 0 (0-99); LIPEMIA HEMOLYSIS FLAG 80 (0-99); MEAN CELL HEMOGLOBIN CONCENTR. 33.1 g/dL (32.4-36.7); MEAN CELL VOLUME 87.6 fL (81.5-99.8); MEAN PLATELET VOLUME 11.4 fL (8.7-11.7); PLATELET CLUMPS FLAG 10 (0-99); PLATELET COUNT 202 10^3/uL (150-400); RED BLOOD CELL COUNT 4.03 10^6/uL (4.18-5.33); RED CELL DISTRIBUTION WIDTH 13.3 % (11.5-15.2)
[2016-11-23 05:30] LABS: ANION GAP 9 mEq/L (8-16); CALCIUM 8.7 mg/dL (8.5-10.4); CARBON DIOXIDE 26 mEq/l (22-31); CHLORIDE 99 mEq/L (97-110); CREATININE 0.7 mg/dL (0.6-1.0); GLOMERULAR FILTRATION RATE > 60; GLUCOSE 130 mg/dL (70-100); POTASSIUM 4.2 mEq/L (3.5-5.2); SODIUM 134 mEq/L (134-144)
[2016-11-23] MEDS: CLINDAMYCIN 150 MG CAP PO SCH (06:42)
[2016-11-23] MEDS: CALCIUM CARB W/VIT D 500 MG TAB PO SCH ×2 (08:11→21:20)
[2016-11-23] MEDS: ATORVASTATIN CALCIUM 10 MG TAB PO SCH (08:11)
[2016-11-23] MEDS: valACYclovir 500 MG TAB PO SCH ×2 (08:12→21:24)
[2016-11-23] MEDS: HYDROCHLOROTHIAZIDE 25 MG TAB PO SCH (08:12)
[2016-11-23] MEDS: guaiFENesin 600 MG TAB.ER PO SCH ×2 (08:12→21:19)
[2016-11-23] MEDS: predniSONE 20 MG TAB PO SCH (08:13)
[2016-11-23] MEDS: ENOXAPARIN 40 MG/0.4 ML SYR SC SCH (08:13)
[2016-11-23] MEDS: ASPIRIN 81 MG CHEWABLE TAB PO SCH (08:13)
[2016-11-23] MEDS: LOSARTAN POTASSIUM 25 MG TAB PO SCH (08:13)
[2016-11-23] MEDS ORDERED: Herbals/Supplements -Info Only PO SCH (09:00)
--- NOTE | 2016-11-23 09:02 | HOSPPROG ---
Hospitalist Progress Note Assessment/Plan: patient is a 81-year-old female who presented the emergency room with dyspnea, nonproductive cough, dysuria, swelling in her left antecubital fossa and vesicular rash on her. She was recently discharged from [facility] for COPD exacerbation secondary to influenza. She returned to the ER with mainly complaints of swelling and pain in the left antecubital pain. Today is my 1st encounter with the patient. Chart reviewed. * COPD exacerbation restarted on prednisone at 40 mg daily on scheduled duo nebs On 2 L of oxygen * left upper extremity cellulitis/AC area wound culture started on clindamycin ,but having significant diarrhea will change to doxycycline recommending warm compresses to the left antecubital space * diarrhea checked for Clostridium difficile now * HSV 1 noted on the mouth area started on valacyclovir * hypertension blood pressure is 136/96 this morning * plan. Patient will require another midnight stay. This will make her inpatient status. Concern she is having significant amount of diarrhea and needs IV hydration. Subjective: Cee is feeling poorly. Having bouts of diarrhea and feels exhausted Objective: Vital Signs Temp Pulse Resp BP Pulse Ox 36.5 C 90 18 156/80 H 97 11/23/16 08:00 11/23/16 08:00 11/23/16 08:00 11/23/16 08:00 11/23/16 08:00 Laboratory Results 11/23/16 05:00 11/23/16 05:00 11/22/16 11/23/16 11/24/16 05:59 05:59 05:59 Intake Total 1921 Output Total 1700 Balance 221 - Physical Exam Constitutional: chronically ill appearing, obese Eyes: PERRL Ears, Nose, Mouth, Throat: hearing normal, other (scabs around the upper lip area) Cardiovascular: regular rate and rhythym Respiratory: no respiratory distress, reduced air movement (bibasilar) Skin: warm, normal color Musculoskeletal: generalized weakness Neurologic: AAOx3 Psychiatric: interacting appropriately ICD10 Worksheet Patient Problems: Problems Problem Status Onset Acute respiratory failure Acute Influenza A Acute Primary localized osteoarthrosis, lower leg Chronic
[2016-11-23] MEDS ORDERED: [UNRECOGNIZED DRUG - OTHER] PO PRN (11:33)
[2016-11-23] MEDS ORDERED: PEPCID PO PRN (11:33)
[2016-11-23] MEDS: DOXYCYCLINE HYCLATE 100 MG CAP/TAB PO SCH ×3 (11:43→21:19)
[2016-11-23] MEDS: MELATONIN 3 MG TAB PO SCH (21:19)
[2016-11-23] MEDS: FAMOTIDINE 20 MG TAB PO SCH (21:24)
[2016-11-24] MEDS: IPRATROPIUM/ALBUTEROL 3 ML DEYVIAL IH SCH (05:51)
[2016-11-24 07:57] VITALS: BP 141/77; PULSE 75; RESP 18; TEMP 98; O2SAT 90
[2016-11-24] MEDS: ASPIRIN 81 MG CHEWABLE TAB PO SCH (08:27)
[2016-11-24] MEDS: guaiFENesin 600 MG TAB.ER PO SCH (08:27)
[2016-11-24] MEDS: ATORVASTATIN CALCIUM 10 MG TAB PO SCH (08:28)
[2016-11-24] MEDS: DOXYCYCLINE HYCLATE 100 MG CAP/TAB PO SCH (08:28)
[2016-11-24] MEDS: HYDROCHLOROTHIAZIDE 25 MG TAB PO SCH (08:28)
[2016-11-24] MEDS: LOSARTAN POTASSIUM 25 MG TAB PO SCH (08:28)
[2016-11-24] MEDS: predniSONE 20 MG TAB PO SCH (08:28)
[2016-11-24] MEDS: valACYclovir 500 MG TAB PO SCH (08:29)
[2016-11-24] MEDS: CALCIUM CARB W/VIT D 500 MG TAB PO SCH (08:29)
[2016-11-24] MEDS: ENOXAPARIN 40 MG/0.4 ML SYR SC SCH (08:30)
--- NOTE | 2016-11-24 08:47 | HOSPPROG ---
Hospitalist Progress Note Assessment/Plan: patient is a 81-year-old female who presented the emergency room with dyspnea, nonproductive cough, dysuria, swelling in her left antecubital fossa and vesicular rash on her. She was recently discharged from [facility] for COPD exacerbation secondary to influenza. She returned to the ER with mainly complaints of swelling and pain in the left antecubital pain. * COPD exacerbation restarted on prednisone at 40 mg daily on scheduled duo nebs on room air this morning * left upper extremity cellulitis/AC area doxycycline recommending warm compresses to the left antecubital space much improved * diarrhea none further * HSV 1 noted on the mouth area started on valacyclovir * hypertension blood pressure is elevated today * plan. dc home Subjective: Cee is feeling much better today. Objective: Vital Signs Temp Pulse Resp BP Pulse Ox 36.7 C 75 18 141/77 H 90 L 11/24/16 07:56 11/24/16 07:56 11/24/16 07:56 11/24/16 07:56 11/24/16 07:56 11/23/16 11/24/16 11/25/16 05:59 05:59 05:59 Intake Total 940 300 Output Total 1250 900 Balance -310 -600 - Physical Exam Constitutional: not in pain, chronically ill appearing Eyes: PERRL Ears, Nose, Mouth, Throat: hearing normal Cardiovascular: regular rate and rhythym Respiratory: no respiratory distress, other ( Has a loose dry cough) Gastrointestinal: normoactive bowel sounds Skin: warm, other ( has multiple scabbed areas around the upper lip area and on the upper lip) Musculoskeletal: full muscle strength Neurologic: AAOx3 Psychiatric: interacting appropriately ICD10 Worksheet Patient Problems: Problems Problem Status Onset Acute respiratory failure Acute Influenza A Acute Primary localized osteoarthrosis, lower leg Chronic
[2016-11-24] MEDS: FAMOTIDINE 20 MG TAB PO SCH (09:29)
--- NOTE | 2016-11-24 11:17 | GDS ---
[f rep st] DISCHARGE SUMMARY DISCHARGE DIAGNOSES: 1. Acute chronic obstructive pulmonary disease exacerbation. 2. Left upper extremity cellulitis at the anterior cubital area. 3. Diarrhea. 4. Herpes simplex virus 1. 5. Hypertension. HISTORY OF PRESENT ILLNESS: Briefly, the patient is a 81-year-old female who presented to the emergency room with dyspnea, nonproductive cough, dysuria, swelling in her left antecubital fossa. She was recently discharged from [facility] for COPD exacerbation secondary to influenza. She mainly had complaints of swelling and pain in her left antecubital arm area. HOSPITAL COURSE: Per problem: 1. COPD exacerbation, much improved. She is on room air today. She will continue on a slow wean of prednisone. 2. Left upper extremity cellulitis. She will take antibiotics for several more days. Treated with Doxycycline. Recommended to use warm compresses. 3. Diarrhea. None further. 4. HSV 1. This was noted on the lip area. She will get a prescription for valacyclovir. 5. Hypertension. Blood pressure is elevated this morning. CONDITION AT DISCHARGE: Stable. VITAL SIGNS: Blood pressure is 141/77, heart rate is 75, respiratory rate is 18 , O2 sats on room air at 90%, temp is 36.7 Celsius. MEDICATIONS AT DISCHARGE: Please see the EMR. DISCHARGE INSTRUCTIONS: 1. To follow up with Dr. Issac Olivares in regard to her COPD. 2. If her left arm gets worsening, redness or swelling to return to the ER or follow up with Dr. Issac Olivares. Greater than 30 minutes discharging and coordinating care. /[id number]/MODL MTDD
--- NOTE | 2016-11-25 16:25 | ASDISCHSUM ---
Discharge Information Plan Status:Home with No Needs Medically Cleared to Leave:11/24/2016 Discharge Date:11/24/2016 11:40 AM CM D/C Disposition:Home, Routine, Self-Care ADT D/C Disposition:Home, Routine, Self-Care Projected Discharge Date:11/24/2016 12:00 AM Transportation at D/C: Discharge Delay Reason: Follow-Up Date:11/24/2016 12:00 AM Discharge Slot: Final Diagnosis: Placement Information Patient Contact Information Contact Name:ROSSI Relationship: Address:[address] [place] City:[place] Alternate Phone: State/Zip Code:[place] [address] Email: Financial Information Financial Class: Primary Plan Desc:MEDICARE INPATIENT Primary Plan Number:[id number] Secondary Plan Desc:[employer]/MDR SUPPLEMENT Secondary Plan Number:[id number] Assessment Information [facility] CM Progress Note CM Note CM Note Notes: Pt has been admitted w/COPD exacerbation, fatigue, SOB. Recently discharged from [facility] 11/17 after hospitalization for same. , lives w/. CM will follow for any d/c needs. Date Signed: 11/22/2016 04:19 PM Electronically Signed By:THANH Hodges Intervention Information Intervention Type:*Incorrect Registration Date of Service:11/22/2016 03:32 PM Patient Type:Observation Staff Member:Lorena Russell Hours:0.25 Discipline: Severity:1 (0-1 Hours) Comment:Registered inpatient, admit order writ ten for observation status. Intervention Type:*GLORIA-Signed Date of Service:11/23/2016 09:28 AM Patient Type:Observation Staff Member:Edel Kirk Hours: Discipline: Severity: Comment:
== END 2016-11-24 11:40 | disposition home or self-care (01) | DRG 603 ==
LOC: INTOOBSV 14:17 → F3E 15:44 → OBSVTOIN 11-23 10:52
PROVIDERS: ADMIT Family Medicine; ATTEND Internal Medicine
DX: L03.114 Cellulitis of left upper limb (principal); J44.1 Chronic obstructive pulmonary disease with (acute) exacerbation; B00.9 Herpesviral infection, unspecified; R19.7 Diarrhea, unspecified; I10 Essential (primary) hypertension; E78.5 Hyperlipidemia, unspecified; Z87.891 Personal history of nicotine dependence
CPT/HCPCS: 97161-GP; G0378; G8978-GP-CH; G8979-GP-CI; J1650

== ENCOUNTER 2016-11-30 11:01 | Observation (INO) | payer OTHER, MEDICARE ==
--- NOTE | 2016-11-30 11:25 | EDPHY ---
H & P Time Seen by Provider: 11/30/16 11:10 HPI/ROS: CHIEF COMPLAINT: Confusion HISTORY OF PRESENT ILLNESS: The patient is a 81-year-old female with a history of COPD who is brought to the emergency department by EMS for confusion. Her family reports that yesterday they were going to go to grocery shopping to [place] but stopped at [employer] to get some coffee. When returned with the coffee the patient had a shopping cart full of food. He asked her why and she stated that they were all on sale. Then today she began throwing away all of her medications. She was at home today lining up her deck of cards up in a row and then messing them up and then lining them up again repeatedly. This is a state she was found by paramedics. Her vital signs are stable she was admitted here 2 weeks ago for influenza and COPD exacerbation. She received Tamiflu and was discharged on a prednisone taper. She returned a week later for weakness and was found to have cellulitis at the site of an IV as well as herpes simplex on her lips. She was started on doxycycline and valacyclovir. She denies having any pain. She denies shortness of breath. No fevers. No dysuria. No abdominal pain. No nausea vomiting or diarrhea. At 1st patient was answering questions appropriately in seen normal but then she began telling me that we are all pieces of stand and that we do not do what God asks us to do such as making water and soda in all variety of flavors . She states that it is been 26 zillion years and we do not have it straightened out yet. REVIEW OF SYSTEMS: Constitutional: See HPI denies: chills, fever, recent illness, recent injury EENTM: denies: blurred vision, double vision, nose congestion Respiratory: denies: cough, shortness of breath Cardiac: denies: chest pain, irregular heart rate, lightheadedness, palpitations Gastrointestinal/Abdominal: denies: abdominal pain, diarrhea, nausea, vomiting, blood streaked stools Genitourinary: denies: dysuria, frequency, hematuria, pain Musculoskeletal: denies: joint pain, muscle pain Skin: denies: lesions, rash, jaundice, bruising Neurological: denies: headache, numbness, paresthesia, tingling, dizziness, weakness Hematologic/Lymphatic: denies: blood clots, easy bleeding, easy bruising Immunologic/allergic: denies: HIV/AIDS, transplant EXAM: GENERAL: Well-appearing, overweight and in no acute distress. HEAD: Atraumatic, normocephalic. EYES: Pupils equal round and reactive to light, extraocular movements intact, sclera anicteric, conjunctiva are normal. ENT: TMs normal, nares patent, oropharynx clear without exudates. Moist mucous membranes. NECK: Normal range of motion, supple without lymphadenopathy or JVD. LUNGS: Breath sounds clear to auscultation bilaterally and equal. No wheezes rales or rhonchi. HEART: Regular rate and rhythm without murmurs, rubs or gallops. ABDOMEN: Soft, nontender, normoactive bowel sounds. No guarding, no rebound. No masses appreciated. BACK: No CVA tenderness, no spinal tenderness, step-offs or deformities EXTREMITIES: Normal range of motion, no pitting or edema. No clubbing or cyanosis. NEUROLOGICAL: Cranial nerves II through XII grossly intact. Normal speech, normal gait. 5/5 strength, normal movement in all extremities, normal sensation PSYCH: Normal mood, normal affect. Odd statements SKIN: Left antecubital slight swelling but no erythema. Warm, dry, normal turgor, no visible rashes or lesions. Source: Patient, EMS, Old records Exam Limitations: Clinical condition - Personal History Tetanus Vaccine Date: < 10 years - Medical/Surgical History Hx Asthma: Yes Hx Chronic Respiratory Disease: Yes Hx Diabetes: No Hx Cardiac Disease: Yes Hx Renal Disease: No Hx Cirrhosis: No Hx Alcoholism: No Hx HIV/AIDS: No Hx Splenectomy or Spleen Trauma: No Other PMH: [place], knee surg x2, HTN, COPD, asthma - Family History Significant Family History: No pertinent family hx - Social History Smoking Status: Former smoker Alcohol Use: Sober Drug Use: None Constitutional: Initial Vital Signs Temperature (C) 36.5 C 11/30/16 11:25 Heart Rate 82 11/30/16 11:25 Respiratory Rate 18 11/30/16 11:25 Blood Pressure 177/64 H 11/30/16 11:25 O2 Sat (%) 92 11/30/16 11:25 O2 Delivery Mode Room Air Allergies/Adverse Reactions: prednisone Adverse Reaction (Intermediate, Verified 12/01/16 19:20) Home Medications: Medication Instructions Recorded Atorvastatin Calcium [Lipitor 10 10 mg PO DAILY 11/17/13 mg (*)] Calcium Carbonate/Vitamin D3 1 each PO BID 11/17/13 [Os-Adalberto 500-Vit D3 200 Caplet] Herbals/Supplements -Info Only 1 ea PO DAILY 11/17/13 Albuterol [Ventolin Hfa Inhaler] 2 puffs IH Q4 PRN 11/15/16 Aspirin [Aspirin 81mg (*)] 81 mg PO DAILY 11/15/16 Famotidine [Pepcid 20 MG (*)] 20 mg PO DAILY PRN 11/15/16 Ibuprofen [Motrin (*)] 400 mg PO HS 11/15/16 Melatonin [Melatonin 3 MG (*)] 10 mg PO HS 11/15/16 Hydrochlorothiazide [HCTZ (*)] 25 mg PO DAILY #0 11/17/16 Losartan Potassium [Cozaar 25 mg 25 mg PO DAILY #0 11/17/16 (*)] guaiFENesin [Mucinex 600 MG (*)] 1,200 mg PO BID #0 tab.er 11/24/16 Medical Decision Making - Diagnostics Imaging: Discussed imaging studies w/ call center representative Radiologist ED Course/Re-evaluation: The patient's family has arrived. They are concerned for stroke. She has not had any weakness focal deficits. She is moving all extremities. No slurred speech or facial droop. Daughter states that she was dumping the salt out on the table and making statues and stating that she had company today. They state that she is still taking prednisone from her recent admissions. 1:30 p.m. the patient appears to have a urinary tract infection. I will start Rocephin admit to the medical service. 1:33 p.m. I discussed the case with Dr. peter joiner who will have admission to Dr. Alexandra Differential Diagnosis: Partial list of the Differential diagnosis considered include but were not limited to; urinary tract infection, medication reaction and although unlikely based on the history and physical exam, I also considered sepsis, head injury, seizure, stroke. - Data Points Laboratory Results: Laboratory Results 11/30/16 11:20 11/30/16 11:20 Medications Given: Discontinued Medications Aspirin (Aspirin) 81 mg PO DAILY [facility] Stop: 05/30/17 08:59 Last Admin: 12/01/16 10:00 Dose: 81 mg Atorvastatin Calcium (Lipitor) 10 mg PO DAILY [facility] Stop: 05/30/17 08:59 Last Admin: 12/01/16 10:00 Dose: 10 mg Famotidine (Pepcid) 20 mg PO DAILY PRN PRN Reason: Heartburn Stop: 05/29/17 15:27 Last Admin: 11/30/16 16:01 Dose: 20 mg Hydrochlorothiazide (Hydrochlorothiazide) 25 mg PO DAILY [facility] Stop: 05/30/17 08:59 Last Admin: 12/01/16 10:01 Dose: 25 mg Ceftriaxone Sodium/Dextrose (Rocephin 1 Gm (Premix)) 50 mls @ 100 mls/hr IV EDNOW ONE PRN Reason: Protocol Stop: 11/30/16 13:55 Last Admin: 11/30/16 13:41 Dose: 50 mls Losartan Potassium (Cozaar) 25 mg PO DAILY [facility] Stop: 05/30/17 08:59 Last Admin: 12/01/16 10:01 Dose: 25 mg Departure - Departure Disposition: [facility] Acute Clinical Impression: Altered mental status Qualifiers: Altered mental status type: unspecified Qualified Code(s): R41.82 - Altered mental status, unspecified Condition: Good
[2016-11-30 11:27] LABS: ABSOLUTE IMMATURE GRANULOCYTES 0.18 10^3/uL (0.00-0.10); ADD DIFF? NO; ADD MORPH? NO; ADD SCAN? NO; ATYPICAL LYMPHOCYTE FLAG 0 (0-99); FRAGMENT RBC FLAG 0 (0-99); HEMATOCRIT 38.3 % (38.0-47.0); HEMOGLOBIN 12.8 g/dL (12.6-16.3); LEFT SHIFT FLG 0 (0-99); LIPEMIA HEMOLYSIS FLAG 80 (0-99); MEAN CELL HEMOGLOBIN 29.4 pg (27.9-34.1); MEAN CELL HEMOGLOBIN CONCENTR. 33.4 g/dL (32.4-36.7); MEAN CELL VOLUME 87.8 fL (81.5-99.8); MEAN PLATELET VOLUME 11.6 fL (8.7-11.7); PLATELET CLUMPS FLAG 0 (0-99); PLATELET COUNT 288 10^3/uL (150-400); RED BLOOD CELL COUNT 4.36 10^6/uL (4.18-5.33); RED CELL DISTRIBUTION WIDTH 14.1 % (11.5-15.2)
[2016-11-30 11:45] LABS: APTT 23.2 SEC (23.0-38.0); INR 0.95 (0.83-1.16); PROTIME(PATIENT) 12.6 SEC (12.0-15.0)
[2016-11-30 12:06] LABS: ANION GAP 12 mEq/L (8-16); CALCIUM 9.1 mg/dL (8.5-10.4); CARBON DIOXIDE 24 mEq/l (22-31); CHLORIDE 99 mEq/L (97-110); CREATININE 0.8 mg/dL (0.6-1.0); GLOMERULAR FILTRATION RATE > 60; GLUCOSE 91 mg/dL (70-100); POTASSIUM 3.8 mEq/L (3.5-5.2); SODIUM 135 mEq/L (134-144)
[2016-11-30 13:10] LABS: COLOR YELLOW; LEUKOCYTE ESTERASE,URINE NEGATIVE (NEGATIVE); NITRITE,URINE NEGATIVE (NEGATIVE)
[2016-11-30 13:14] LABS: BACTERIA TRACE /hpf (NONE SEEN); MUCUS TRACE /lpf (NONE-1+)
[2016-11-30] MEDS ORDERED: OLANZapine 2.5 MG TAB PO PRN (14:48)
[2016-11-30] MEDS ORDERED: IPRATROPIUM/ALBUTEROL 3 ML DEYVIAL IH PRN (14:50)
[2016-11-30] MEDS ORDERED: ONDANSETRON 4 MG/2 ML VIAL IVP PRN (14:50)
[2016-11-30] MEDS ORDERED: ACETAMINOPHEN 325 MG TAB PO PRN (14:50)
[2016-11-30] MEDS ORDERED: ONDANSETRON DISINTEGRATING 4 MG TAB PO PRN (14:50)
[2016-11-30] MEDS ORDERED: FAMOTIDINE 20 MG TAB PO PRN (15:28)
--- NOTE | 2016-11-30 15:49 | GHP ---
[f rep st] HISTORY AND PHYSICAL DATE OF ADMISSION: 11/30/2016 CHIEF COMPLAINT: Psychosis and insomnia. HISTORY OF PRESENT ILLNESS: The patient is a 81-year-old female with a history of hypertension, hype rlipidemia, and COPD, who presents to the emergency department via EMS after being found by her famil y in an acute manic hallucinatory state. This is her 3rd admission to the hospital this month. She was initially admitted November 15 with influenza and associated COPD exacerbation. She was discharg ed November 17 on 60 mg of prednisone daily. This reportedly caused insomnia and she did not sleep f or several days. She then returned to the hospital November 22 with fatigue and persistent cough. She was again admitted for COPD exacerbation and continued on high-dose prednisone. In addition, she was treated for her cellulitis of the left upper extremity thought secondary to an IV previously in that arm. Her respiratory symptoms have improved. However, over the past several days, she continue s to not sleep. She has become more manic and today she was found in an acute confusional state, hav ing torn all the labels off her medication bottles and throwing them all in the trash, dumping all th e salt out of their containers and then proceeded to fall down the stairs. She denies fevers or chil ls. She continues to have a mild cough, but denies any wheezing, chest pain, or shortness of breath. Upon my evaluation, she is repeatedly trying to pull her IV out and is giggling. She denies any ur inary symptoms. She overall appears nontoxic but given her confusion, insomnia, and psychotic sympto ms, she is admitted to the hospital for further management. PAST MEDICAL HISTORY: 1. Hypertension. 2. Hyperlipidemia. 3. COPD. She is not oxygen dependent. 4. Recent influenza. MEDICATIONS: Please see [facility] for complete updated outpatient medication list. ALLERGIES: She has no known drug allergies. FAMILY HISTORY: Reviewed and noncontributory. SOCIAL HISTORY: The patient lives independently with her , who reportedly has early stages of dementia. She is a former smoker. She denies alcohol or drug use. She is independent in her ADLs. REVIEW OF SYSTEMS: A 10-point review of systems was performed and is negative except as per HPI. OBJECTIVE: VITAL SIGNS: Temperature is 36.6, blood pressure 139/68, heart rate 72, respiratory rate 20, she is 92% on room air. GENERAL: The patient is awake, alert, oriented to person, place, and t eda though has been confusing people. HEENT: Head is atraumatic, normocephalic. Pupils equal, roun d, react to light. Extraocular muscles intact. Oropharynx is clear. Mucous membranes are moist. N GORDON: Supple. There is no JVD. HEART: Regular rate and rhythm. LUNGS: Reveal good air exchange wi th faint end-expiratory wheeze which seems to clear after several deep breaths. Overall, I do not he ar any significant wheezing. ABDOMEN: Soft, nondistended, nontender with normoactive bowel sounds. EXTREMITIES: Without cyanosis, clubbing, or edema. NEUROLOGIC: Cranial nerves 2-12 are intact. S he has no facial asymmetry. Speech is fluent. Pronator drift negative. She moves all 4 extremities and has 5/5 muscle strength in upper and lower extremities bilaterally. LABORATORY DATA: CBC reveals a white count of 17.6. INR is normal. Basic metabolic panel shows nor mal electrolytes, BUN of 27, creatinine 0.8. Urinalysis shows 2+ blood, 3-5 red cells, 3-5 white cristian ls, and trace bacteria. Head CT shows some nonspecific white matter change, possibly secondary to small-vessel ischemic disea se. No evidence of acute stroke or hemorrhage. Chest x-ray is personally reviewed and interpreted. It does not include the entire lung shafer, but no obvious infiltrate is identified. There is no pleural effusion on the right flank, cannot see her left costophrenic angle. Heart size appears normal. ASSESSMENT/PLAN: The patient is a 81-year-old female with history of hypertension, hyperlipidemia, a nd recent chronic obstructive pulmonary disease exacerbation in the setting of influenza, who returns to the hospital with acute dominik and psychotic symptoms. 1. Steroid induced psychosis. She has been on high-dose steroids for nearly 2 weeks and has had ass ociated insomnia, now presenting with hallucinations and manic behavior. We will stop her steroids. I do not think she has any further indication for them. I will give her p.r.n. Zyprexa for her corea ucinations and acute dominik. If her symptoms do not begin to clear, would consider brain MRI and poss ibly Neurology consult. 2. Chronic obstructive pulmonary disease. There is no evidence of acute exacerbation. She is on ro om air. I will give her p.r.nKristel Aguilar for now. She would likely benefit from Spiriva as well as he r regular albuterol inhaler at discharge. 3. Recent left upper extremity cellulitis. She has completed her antibiotic course. I see no evide nce of ongoing infection. We will defer further antibiotics. 4. Hypertension. Her current blood pressure is fairly well controlled. We will continue her hydroc hlorothiazide and losartan. 5. Hyperlipidemia. Continue statin. CODE STATUS: Patient is full code. DISPOSITION: Patient is admitted to observation status. If her mentation clears, she may be a tova date for discharge tomorrow. /[id number]/MODL
[2016-11-30 21:48] LABS: BILIRUBIN,TOTAL 1.4 mg/dL (0.1-1.4)
[2016-12-01 04:47] LABS: % IMMATURE GRANULYOCYTES 0.6 % (0.0-1.1); ABSOLUTE IMMATURE GRANULOCYTES 0.07 10^3/uL (0.00-0.10); ADD DIFF? NO; ADD MORPH? NO; ADD SCAN? NO; ATYPICAL LYMPHOCYTE FLAG 0 (0-99); FRAGMENT RBC FLAG 0 (0-99); HEMATOCRIT 33.8 % (38.0-47.0); HEMOGLOBIN 11.1 g/dL (12.6-16.3); LEFT SHIFT FLG 0 (0-99); LIPEMIA HEMOLYSIS FLAG 80 (0-99); MEAN CELL HEMOGLOBIN 29.3 pg (27.9-34.1); MEAN CELL HEMOGLOBIN CONCENTR. 32.8 g/dL (32.4-36.7); MEAN CELL VOLUME 89.2 fL (81.5-99.8); MEAN PLATELET VOLUME 11.5 fL (8.7-11.7); PLATELET CLUMPS FLAG 0 (0-99); PLATELET COUNT 221 10^3/uL (150-400); RED BLOOD CELL COUNT 3.79 10^6/uL (4.18-5.33); RED CELL DISTRIBUTION WIDTH 14.5 % (11.5-15.2)
[2016-12-01] MEDS ORDERED: ASPIRIN 81 MG CHEWABLE TAB PO SCH (09:00)
[2016-12-01] MEDS ORDERED: LOSARTAN POTASSIUM 25 MG TAB PO SCH (09:00)
[2016-12-01] MEDS ORDERED: ATORVASTATIN CALCIUM 10 MG TAB PO SCH (09:00)
[2016-12-01] MEDS ORDERED: HYDROCHLOROTHIAZIDE 25 MG TAB PO SCH (09:00)
[2016-12-01 11:35] VITALS: BP 150/73; PULSE 63; TEMP 98; O2SAT 95
[2016-12-01 13:42] VITALS: RESP 15
--- NOTE | 2016-12-01 16:08 | PDIAF ---
- Diagnosis Diagnosis: steroid induced psychosis, possible underlying cognitive impairment Code Status: Full Code - Medication Management Discharge Medications: Medications to Continue on Transfer Atorvastatin Calcium [Lipitor 10 mg (*)] 10 mg PO DAILY 11/17/13 [Last Taken 12/29] Calcium Carbonate/Vitamin D3 [Os-Adalberto 500-Vit D3 200 Caplet] 1 each PO BID [Last Taken 11/22/16] Herbals/Supplements -Info Only 1 ea PO DAILY 11/17/13 [Last Taken 12/03/13 10:30 ] Albuterol [Ventolin Hfa Inhaler] 2 puffs IH Q4 PRN 11/15/16 [Last Taken 11/15/16 ] Aspirin [Aspirin 81mg (*)] 81 mg PO DAILY 11/15/16 [Last Taken 11/22/16] Famotidine [Pepcid 20 MG (*)] 20 mg PO DAILY PRN 11/15/16 [Last Taken 11/21/16] Ibuprofen [Motrin (*)] 400 mg PO HS 11/15/16 [Last Taken 11/21/16] Melatonin [Melatonin 3 MG (*)] 10 mg PO HS 11/15/16 [Last Taken 11/21/16] Hydrochlorothiazide [HCTZ (*)] 25 mg PO DAILY #0 11/17/16 [Last Taken 11/22/16] Losartan Potassium [Cozaar 25 mg (*)] 25 mg PO DAILY #0 11/17/16 [Last Taken 05/01] guaiFENesin [Mucinex 600 MG (*)] 1,200 mg PO BID #0 tab.er 11/24/16 [Last Taken Unknown] Discharge Medications: Refer to the Discharge Home Medication list for PRN reason. PICC Care - Routine: N/A - Orders Services needed: Master Traffic Officer, Speech Language Pathologist Diet Recommendation: no restrictions on diet Additional: Home care, speech for cognitive eval f/u - Follow Up Care Current Providers and Referrals: Marshall Davenport MD [Primary Care Provider] - As per Instructions
--- NOTE | 2016-12-01 16:09 | ASMTCMCOM ---
CM Note CM Note Notes: Pt is 81 y/o female admitted w/ AMS. Pt was discharged earlier this month on 11/25 for COPD exacerbation and the flu. Pts mental status is improving today. OT is recommending pt recieves non skilled HC. PT is recommending home. CM provided daughter w/ a list of non skilled HC agencies. Speech is ordered. Pt will most likely go home independent w/out any needs. CM to follow pending speech recommendation. Date Signed: 12/01/2016 04:08 PM Electronically Signed By:ASTER Maguire
--- NOTE | 2016-12-02 00:38 | GDS ---
[f rep st] DISCHARGE SUMMARY DISCHARGE DIAGNOSES: 1. Steroid-induced psychosis, resolved. 2. Chronic obstructive pulmonary disease. 3. Hypertension. 4. Hyperlipidemia. HISTORY: For details, please see dictated history and physical dated November 30, 2016. In brief, the patient is a 81-year-old female, who is admitted to the hospital for the third time this month. She was initially admitted early November with influenza associated with COPD exacerbation. At that time, she was started on high-dose prednisone therapy. She was discharged home but returned with ce llulitis of her upper extremity related to an IV catheter. She completed a week of antibiotics for t his. During that time, she was continued on high-dose prednisone and was discharged on a taper. It is reported she had not been sleeping ever since she started on the prednisone and was found the day of admission in a confused manic state. She was admitted to the hospital for further management. HOSPITAL COURSE: Patient admitted to the medical-surgical unit. She was noted to be hallucinatory w ith manic behavior on arrival. Her prednisone was stopped. Fortunately, her lungs were clear. She was not requiring oxygen, and there was no evidence of a COPD exacerbation. She was treated with p.r .n. nebulizers and p.r.n. Zyprexa was ordered for her hallucinatory symptoms. However, fortunately, she did not require this. She was able to sleep for 5 hours the night of admission, according to the RN. The following morning, her mentation had returned nearly to baseline. She had a speech therapy evaluation to assess her cognition and scored a 21/30 on the SLUMS. Unclear what her baseline is, b ut this is consistent with mild cognitive impairment. There may still be some residual effects of he r steroid-induced dominik and psychotic symptoms. However, the half-life of prednisone is relatively f ast, and I anticipate this has nearly cleared her system. She was also evaluated by Physical Therapy , and they felt she was safe for discharge home. Occupational Therapy also felt she was safe for dis charge home. The plan is to have a family member stay with her over the next several days as it is n oted that her suffers from some dementia, and they are concerned about her being his primary caregiver. DISPOSITION: Patient is discharged home in stable condition with home health services, including soc ial work and speech therapy for ongoing cognition assessment. FOLLOWUP: Issac Olivares, primary care. DISCHARGE MEDICATIONS: [facility]. She will salvador nue all outpatient medications as prescribed. Discontinued medications include prednisone and valacy clovir. /[id number]/MODL
== END 2016-12-01 17:22 | disposition home or self-care (01) ==
LOC: EDUNIT# → F3E 14:16
PROVIDERS: ADMIT Hospitalist; ATTEND Hospitalist
DX: F19.951 Other psychoactive substance use, unspecified with psychoactive substance-induced psychotic disorder with hallucinations (principal); J44.9 Chronic obstructive pulmonary disease, unspecified; I10 Essential (primary) hypertension; E78.5 Hyperlipidemia, unspecified
CPT/HCPCS: 70450; 71020; 92523; 97161; 97165; G0378; G8978; G8979; G8980; G8987; G8988; G8989; G9168; G9169; J0696; 96365

== ENCOUNTER → 2017-03-23 | Outpatient (CLI) | payer OTHER, MEDICARE | LOC: BMCIMAGING 07:26 | PROVIDERS: ATTEND Internal Medicine Cardiovascular Disease | DX: Z12.31 Encounter for screening mammogram for malignant neoplasm of breast (principal); I65.23 Occlusion and stenosis of bilateral carotid arteries; Z80.3 Family history of malignant neoplasm of breast ==

== ENCOUNTER → 2018-04-08 | Outpatient (CLI) | payer OTHER, MEDICARE | LOC: BHFA 10:45 | PROVIDERS: ATTEND Internal Medicine Cardiovascular Disease | DX: I77.9 Disorder of arteries and arterioles, unspecified (principal); I10 Essential (primary) hypertension ==